=== PATIENT | female | born 1950 | race Caucasian/White ===

== ENCOUNTER → 2017-11-30 11:40 | Outpatient (CLI) | payer MEDICARE, OTHER, SELFPAY ==
--- NOTE | 2017-11-30 | DI.MG.S_ITS ---
UNILATERAL LEFT DIGITAL SCREENING MAMMOGRAM 3D/2D WITH CAD POST MASTECTOMY: 11/30/2017 CLINICAL: Routine screening. Personal history of right breast cancer. Family history of breast cancer. Comparison is made to exams dated: 11/21/2016 mammogram, 10/21/2011 mammogram - [facility], and 09/10/2010 mammogram - [facility]. There are scattered fibroglandular elements in the left breast. Current study was also evaluated with a Computer Aided Detection (CAD) system. There are mole markers on the left breast. No significant masses, calcifications, or other findings are seen in the breast. There has been no significant interval change. IMPRESSION: NEGATIVE There is no mammographic evidence of malignancy. A 1 year screening mammogram is recommended. This exam was interpreted at Station ID: [id number]. NOTE: For mammograms, a report in lay terms will be sent to the patient. Approximately 15% of breast malignancies will not be visualized mammographically. In the management of a palpable breast mass, a negative mammogram must not discourage biopsy of a clinically suspicious lesion. Electronically Signed By: Mariusz gentile/kandice:11/30/2017 19:59:21 letter sent: Normal Exam ACR BI-RADS Category 1: Negative 3341F
== END ==
PROVIDERS: Family Provider Family Medicine; PCP Family Medicine; Visit Provider Family Medicine
DX: Z12.31 Encounter for screening mammogram for malignant neoplasm of breast (principal); Z85.3 Personal history of malignant neoplasm of breast; Z80.3 Family history of malignant neoplasm of breast
CPT/HCPCS: 77063; 77065

== ENCOUNTER → 2018-06-04 12:26 | Outpatient (CLI) | payer MEDICARE, OTHER, SELFPAY ==
--- NOTE | 2018-06-04 | DI.RAD.S_ITS ---
PROCEDURE: XR CHEST 2V INDICATIONS: COUGH TECHNIQUE: 2 views of the chest were acquired. COMPARISON: [facility], CHEST 1 VIEW, 04/28/2015, 15:58. [facility], CHEST 1 VIEW, 04/28/2015, 16:14. [facility], CHEST 2 VIEW, 07/15/2015, 10:09. [facility], CHEST 2 VIEW, 08/08/2016, 13:09. FINDINGS: Surgical changes and devices: None. Lungs and pleura: Lungs are clear. No pleural effusions or pneumothorax. Mediastinum: Mediastinal contours are normal. Heart size is normal. Bones and chest wall: No suspicious bony abnormalities. Age-appropriate bony degenerative changes are seen. Mild dextroconvex scoliotic curvature is seen. Soft tissues appear unremarkable. IMPRESSION: No acute cardiopulmonary process is seen. If there is clinical concern for a developing pulmonary process, a short-term followup chest series (with PA and lateral views, performed in deep inspiration) is suggested for further evaluation. Dictated by: Narciso Rouse M.D. on 06/04/2018 at 12:09 Approved by: Narciso Rouse M.D. on 06/04/2018 at 12:09
== END ==
PROVIDERS: Visit Provider Internal Medicine
DX: R05 Cough (principal)
CPT/HCPCS: 71046

== ENCOUNTER 2018-06-10 15:20 | Emergency (ER) | payer MEDICARE, OTHER, SELFPAY ==
[2018-06-10 15:27] VITALS: BP 155/59; PULSE 117; RESP 20; TEMP 37.1; O2SAT 95
--- NOTE | 2018-06-10 15:31 | ED.URI ---
HPI - URI/Sore Throat <Nanda Vega PA-C - Last Filed: 06/10/18 21:37> General Chief Complaint: Upper Respiratory Symptoms Stated Complaint: cough, walk in said they cant help her Time Seen by Provider: 06/10/18 15:29 Source: patient Mode of arrival: ambulatory Limitations: no limitations History of Present Illness HPI Narrative: this 68-year-old female comes in with concern for COPD exacerbation. She states that since yesterday, she has had worsening cough and dyspnea, and even more so today. She has runny nose. She does not have fever. She intermittently brings some sputum which is atypical for her. She states this is thick and yellow/white. She has been exposed to a grandchild that has had runny nose and cold symptoms, age 10 months. She believes that was due to teething. She feels like this is similar to previous exacerbations where antibiotics have been helpful ( has had 2 more episodes in the last 4 months).. She denies chest pain. She denies new pain or swelling in the extremities (states she always has mild ankle swelling which is unchanged). she states that she has been getting up and sitting in a recliner last couple of nights due to the cough keeping her up. She is not short of breath lying down. Related Data Home Medications Medication Instructions Recorded Confirmed albuterol sulfate HFA 90 1 puff INHALATION Q6H PRN 04/25/18 04/25/18 mcg/actuation aerosol inhaler Previous Rx's Medication Instructions Recorded losartan 50 mg-hydrochlorothiazide 1 tab PO DAILY #30 tab 03/29/18 12.5 mg tablet losartan 50 mg-hydrochlorothiazide 1 tab PO DAILY #60 tab 04/25/18 12.5 mg tablet amoxicillin-pot clavulanate 1 tab PO Q12H #12 tab 06/10/18 prednisone 40 mg PO DAILY 3 Days #6 tab 06/10/18 Allergies Allergy/AdvReac Type Severity Reaction Status Date / Time povidone-iodine Allergy Unknown Verified 04/25/18 16:06 [From BETADINE] soap [From BETADINE] Allergy Unknown Verified 04/25/18 16:06 Review of Systems <Nanda Vega PA-C - Last Filed: 06/10/18 21:37> Review of Systems ROS Unobtainable: All systems reviewed & are unremarkable except as noted in HPI and below PFSH <LEXIS Landa Last Filed: 06/10/18 21:37> Medical History H/O: HTN (hypertension) (Chronic) History of COPD (Chronic) History of asthma (Chronic) Leukocytosis (Chronic) MS (multiple sclerosis) (Chronic) History of breast cancer (Resolved) Surgical History History of (Resolved) Status post cholecystectomy (Resolved) Status post hernia repair (Resolved) Status post hysterectomy (Resolved) Status post right mastectomy (Resolved) Social History Smoking Status: Former smoker Social History Smoking Status: Former smoker Comment: Forty-two pack-years tobacco, quit 2014 Exam <LEXIS Landa Last Filed: 06/10/18 21:37> Narrative Exam Narrative: GENERAL APPEARANCE: Patient sitting comfortably, in no distress. HEAD: No sinus TTP. EYES: PERRL, EOMI. ORAL CAVITY: Normal oropharynx. THROAT: Clear. NECK/THYROID: Neck supple, full range of motion, no cervical lymphadenopathy. LUNGS: Course, moderately congested breath sounds with a few scattered crackles, not audible after nebulizer treatment. No wheeze. Occasional wet cough. HEART: RRR without murmur, nl S1, S2, no S3 or S4. ABDOMEN: Soft, nontender, nondistended, +bowel sounds x4 quadrants EXTREMITIES: Mild edema to the ankles bilaterally, no calf tenderness. Small varicosities noted bilaterally Initial Vital Signs Initial Vital Signs: Vital Signs Temperature 98.8 F 06/10/18 15:27 Pulse Rate 117 H 06/10/18 15:27 Respiratory Rate 20 06/10/18 15:27 Blood Pressure 155/59 H 06/10/18 15:27 Pulse Oximetry 95 06/10/18 15:27 <Rona Abad DO - Last Filed: 06/11/18 07:26> Initial Vital Signs Initial Vital Signs: Vital Signs Temperature 98.8 F 06/10/18 15:27 Pulse Rate 117 H 06/10/18 15:27 Respiratory Rate 20 06/10/18 15:27 Blood Pressure 155/59 H 06/10/18 15:27 Pulse Oximetry 95 06/10/18 15:27 Course <LEXIS Landa Last Filed: 06/10/18 21:37> Additional Information: patient feels a bit better after nebulizer treatments. She states that she always has elevated white counts and does not wish further testing for this. She feels like these are the exact symptoms that she has had in the last few months which always improve with antibiotics. She does have increased purulent sputum production and a culture will be sent. She does not have a spacer for inhalers and teaching was done for this with respiratory therapy. She has taken prednisone in the past with no problems for her MS and will start on this for a few days as well as Augmentin, and will follow up with her PCP in a few days. She promised to return to ED immediately if acutely worsening symptoms Orders Ordered: Discontinued Medications Albuterol (Ventolin) 2.5 mg INH NOW ONE Stop: 06/10/18 15:30 Last Admin: 06/10/18 15:50 Dose: 2.5 mg Albuterol/Ipratropium (Duoneb) 3 ml INH NOW ONE Stop: 06/10/18 15:49 Last Admin: 06/10/18 15:50 Dose: 3 ml Amoxicillin/Clavulanate Potassium (Augmentin 875-125 Mg) 2 tab PO NOW ONE Stop: 06/10/18 17:15 Last Admin: 06/10/18 17:31 Dose: 2 tab Ipratropium Bastian (Atrovent Neb) 0.5 mg INH NOW ONE Stop: 06/10/18 15:30 Last Admin: 06/10/18 16:21 Dose: Not Given Prednisone (Deltasone) 40 mg PO NOW ONE Stop: 06/10/18 17:15 Last Admin: 06/10/18 17:32 Dose: 40 mg Vital Signs - 8 hr 06/10/18 15:27 06/10/18 15:51 06/10/18 16:00 Temperature 98.8 F Pulse Rate 117 H 99 H 106 H Respiratory Rate 20 18 21 Blood Pressure 155/59 H Blood Pressure [Left Arm] 145/58 H Pulse Oximetry 95 97 96 06/10/18 17:00 06/10/18 17:33 Temperature Pulse Rate 108 H 105 H Respiratory Rate 30 H 19 Blood Pressure 131/54 L Blood Pressure [Left Arm] 131/54 L Pulse Oximetry 96 98 <Rona Abad DO - Last Filed: 06/11/18 07:26> Orders Ordered: Discontinued Medications Albuterol (Ventolin) 2.5 mg INH NOW ONE Stop: 06/10/18 15:30 Last Admin: 06/10/18 15:50 Dose: 2.5 mg Albuterol/Ipratropium (Duoneb) 3 ml INH NOW ONE Stop: 06/10/18 15:49 Last Admin: 06/10/18 15:50 Dose: 3 ml Amoxicillin/Clavulanate Potassium (Augmentin 875-125 Mg) 2 tab PO NOW ONE Stop: 06/10/18 17:15 Last Admin: 06/10/18 17:31 Dose: 2 tab Ipratropium Bastian (Atrovent Neb) 0.5 mg INH NOW ONE Stop: 06/10/18 15:30 Last Admin: 06/10/18 16:21 Dose: Not Given Prednisone (Deltasone) 40 mg PO NOW ONE Stop: 06/10/18 17:15 Last Admin: 06/10/18 17:32 Dose: 40 mg Vital Signs - 8 hr 06/10/18 15:27 06/10/18 15:51 06/10/18 16:00 Temperature 98.8 F Pulse Rate 117 H 99 H 106 H Respiratory Rate 20 18 21 Blood Pressure 155/59 H Blood Pressure [Left Arm] 145/58 H Pulse Oximetry 95 97 96 06/10/18 17:00 06/10/18 17:33 Temperature Pulse Rate 108 H 105 H Respiratory Rate 30 H 19 Blood Pressure 131/54 L Blood Pressure [Left Arm] 131/54 L Pulse Oximetry 96 98 MDM - URI/Sore Throat <Nanda Vega PA-C - Last Filed: 06/10/18 21:37> Lab Data Attestation: I reviewed the patient's lab results. Result diagrams: 06/10/18 16:10 06/10/18 16:10 Lab Results 06/10/18 06/10/18 06/10/18 Range/Units 15:35 15:58 16:10 WBC 21.0 H (4.5-11.0) X10^3/uL RBC 4.60 (4.0-5.2) X10^6/uL Hgb 12.2 (12.0-16.0) g/dL Hct 37.8 (36-46) % MCV 82.0 (80-100) fL MCH 26.6 (26-34) PG MCHC 32.4 (30-36) % RDW 14.1 (11.6-14.8) % Plt Count 285 (150-400) X10^3/uL Neut % (Auto) 69.6 (50-75) % Lymph % (Auto) 20.3 L (25-40) % [place] % (Auto) 8.7 (3-14) % Eos % (Auto) 0.2 L (2-4) % Baso % (Auto) 1.2 (0-2) % Neut # (Auto) 00359 H (5949-7512) /uL Lymph # (Auto) 4300 (7625-1196) /uL [place] # (Auto) 1800 H (0-900) /uL Eos # (Auto) 0 (0-450) /uL Baso # (Auto) 200 H (0-100) /uL Sodium (137-145) mmol/L Potassium (3.4-5.1) mmol/L Chloride (98-107) mmol/L Carbon Dioxide (22-32) mmol/L BUN (7-17) mg/dL Creatinine (0.52-1.04) mg/dL Estimated GFR (>60) mL/min BUN/Creatinine Ratio (6-22) Glucose (80-110) mg/dL Calcium (8.4-10.2) mg/dL Total Bilirubin (0.2-1.3) mg/dL AST (14-36) IU/L ALT (9-52) IU/L Alkaline Phosphatase (38-126) U/L B-Natriuretic Peptide < 100 (<100) Total Protein (6.3-8.2) g/dL Albumin (3.5-5.0) g/dL Globulin (1.7-4.1) g/dL Albumin/Globulin Ratio (1.0-2.8) Influenza A & B (PCR) Negative (Negative) RSV (PCR) Negative 06/10/18 Range/Units 16:10 WBC (4.5-11.0) X10^3/uL RBC (4.0-5.2) X10^6/uL Hgb (12.0-16.0) g/dL Hct (36-46) % MCV (80-100) fL MCH (26-34) PG MCHC (30-36) % RDW (11.6-14.8) % Plt Count (150-400) X10^3/uL Neut % (Auto) (50-75) % Lymph % (Auto) (25-40) % [place] % (Auto) (3-14) % Eos % (Auto) (2-4) % Baso % (Auto) (0-2) % Neut # (Auto) (8240-4733) /uL Lymph # (Auto) (6028-5160) /uL [place] # (Auto) (0-900) /uL Eos # (Auto) (0-450) /uL Baso # (Auto) (0-100) /uL Sodium 139 (137-145) mmol/L Potassium 3.8 (3.4-5.1) mmol/L Chloride 98 (98-107) mmol/L Carbon Dioxide 30 (22-32) mmol/L BUN 15 (7-17) mg/dL Creatinine 1.00 (0.52-1.04) mg/dL Estimated GFR 55.0 L (>60) mL/min BUN/Creatinine Ratio 15.0 (6-22) Glucose 152 H (80-110) mg/dL Calcium 9.6 (8.4-10.2) mg/dL Total Bilirubin 0.5 (0.2-1.3) mg/dL AST 20 (14-36) IU/L ALT 24 (9-52) IU/L Alkaline Phosphatase 104 (38-126) U/L B-Natriuretic Peptide (<100) Total Protein 8.0 (6.3-8.2) g/dL Albumin 4.3 (3.5-5.0) g/dL Globulin 3.7 (1.7-4.1) g/dL Albumin/Globulin Ratio 1.2 (1.0-2.8) Influenza A & B (PCR) (Negative) RSV (PCR) Imaging Data Chest x-ray: Radiologist's impression: [address] [address] XRay Report Signed Patient: Kym Brunner [facility]#: [id number] : 1950Acct:[id number] Age/Sex: 68 / FDate of Service: 06/10/18 Loc: ED Accession Number: [id number] Procedure: XR chest 2V Ordering Provider: Nanda Vega P.A-C PROCEDURE: XR CHEST 2V INDICATIONS: cough, sob TECHNIQUE: 2 views of the chest were acquired. COMPARISON: [facility], , XR CHEST 2V, 06/04/2018, 12:33. [facility], CR, CHEST 2 VIEW, 08/08/2016, 13:09. FINDINGS: Surgical changes and devices: None. Lungs and pleura: No acute consolidation. Scattered subsegmental atelectasis and/or scarring. No pleural effusions or pneumothorax. Eventration of the right diaphragm. Upper lobe centrilobular emphysema, left greater than right Mediastinum: Mediastinal contours are normal. Heart size is normal. Bones and chest wall: No suspicious bony abnormalities. Lateral curvature of the spine and diffuse spondylosis. Soft tissues appear unremarkable. IMPRESSION: No acute consolidation. Scattered subsegmental atelectasis and/or scarring. No interval change. Dictated by: Jose Luis Germain M.D. on 06/10/2018 at 16:23 Approved by: Jose Luis Germain M.D. on 06/10/2018 at 16:24 ECG Data Attestation: I personally reviewed and interpreted this ECG as follows: ( sinus tachycardia with rate 102, normal axis, no acute change) Prior ECG tracings: available for review <Rona Abad DO - Last Filed: 06/11/18 07:26> Lab Data Lab Results 06/10/18 06/10/18 06/10/18 Range/Units 15:35 15:58 16:10 WBC 21.0 H (4.5-11.0) X10^3/uL RBC 4.60 (4.0-5.2) X10^6/uL Hgb 12.2 (12.0-16.0) g/dL Hct 37.8 (36-46) % MCV 82.0 (80-100) fL MCH 26.6 (26-34) PG MCHC 32.4 (30-36) % RDW 14.1 (11.6-14.8) % Plt Count 285 (150-400) X10^3/uL Neut % (Auto) 69.6 (50-75) % Lymph % (Auto) 20.3 L (25-40) % [place] % (Auto) 8.7 (3-14) % Eos % (Auto) 0.2 L (2-4) % Baso % (Auto) 1.2 (0-2) % Neut # (Auto) 14082 H (5072-3721) /uL Lymph # (Auto) 4300 (6226-9523) /uL [place] # (Auto) 1800 H (0-900) /uL Eos # (Auto) 0 (0-450) /uL Baso # (Auto) 200 H (0-100) /uL Sodium (137-145) mmol/L Potassium (3.4-5.1) mmol/L Chloride (98-107) mmol/L Carbon Dioxide (22-32) mmol/L BUN (7-17) mg/dL Creatinine (0.52-1.04) mg/dL Estimated GFR (>60) mL/min BUN/Creatinine Ratio (6-22) Glucose (80-110) mg/dL Calcium (8.4-10.2) mg/dL Total Bilirubin (0.2-1.3) mg/dL AST (14-36) IU/L ALT (9-52) IU/L Alkaline Phosphatase (38-126) U/L B-Natriuretic Peptide < 100 (<100) Total Protein (6.3-8.2) g/dL Albumin (3.5-5.0) g/dL Globulin (1.7-4.1) g/dL Albumin/Globulin Ratio (1.0-2.8) Influenza A & B (PCR) Negative (Negative) RSV (PCR) Negative 06/10/18 Range/Units 16:10 WBC (4.5-11.0) X10^3/uL RBC (4.0-5.2) X10^6/uL Hgb (12.0-16.0) g/dL Hct (36-46) % MCV (80-100) fL MCH (26-34) PG MCHC (30-36) % RDW (11.6-14.8) % Plt Count (150-400) X10^3/uL Neut % (Auto) (50-75) % Lymph % (Auto) (25-40) % [place] % (Auto) (3-14) % Eos % (Auto) (2-4) % Baso % (Auto) (0-2) % Neut # (Auto) (1586-1975) /uL Lymph # (Auto) (1345-2087) /uL [place] # (Auto) (0-900) /uL Eos # (Auto) (0-450) /uL Baso # (Auto) (0-100) /uL Sodium 139 (137-145) mmol/L Potassium 3.8 (3.4-5.1) mmol/L Chloride 98 (98-107) mmol/L Carbon Dioxide 30 (22-32) mmol/L BUN 15 (7-17) mg/dL Creatinine 1.00 (0.52-1.04) mg/dL Estimated GFR 55.0 L (>60) mL/min BUN/Creatinine Ratio 15.0 (6-22) Glucose 152 H (80-110) mg/dL Calcium 9.6 (8.4-10.2) mg/dL Total Bilirubin 0.5 (0.2-1.3) mg/dL AST 20 (14-36) IU/L ALT 24 (9-52) IU/L Alkaline Phosphatase 104 (38-126) U/L B-Natriuretic Peptide (<100) Total Protein 8.0 (6.3-8.2) g/dL Albumin 4.3 (3.5-5.0) g/dL Globulin 3.7 (1.7-4.1) g/dL Albumin/Globulin Ratio 1.2 (1.0-2.8) Influenza A & B (PCR) (Negative) RSV (PCR) Discharge Plan Departure Patient Disposition: Home Clinical Impression: Chronic obstructive pulmonary disease with (acute) exacerbation Discharge Date/Time: 06/10/18 17:34 Interventions: ED Discharge Assessment Last Done: 06/10/18 17:33 Instructions: DI for Chronic Obstructive Pulmonary Disease Activity Restrictions/Additional Instructions: please return if you have any acutely worsening symptoms as we discussed. Otherwise, please take your 2nd dose of antibiotic early in the morning. 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 continue your steroid inhaler and your other usual medicines. For your albuterol (ProAir) you can take this as often as needed, up to every hour or 2 if your chest is feeling tight or UR short of breath, or for coughing spells. Use your inhalers with the spacer that we gave you. Prescriptions: New prednisone 20 mg tablet 40 mg PO DAILY 3 Days Qty: 6 RF: 0 amoxicillin-pot clavulanate 875-125 mg tablet 1 tab PO Q12H Qty: 12 RF: 0 No Action albuterol sulfate [ProAir HFA] 90 mcg/actuation HFA aerosol inhaler 1 puff INHALATION Q6H PRNRF: 0 losartan-hydrochlorothiazide 50-12.5 mg tablet 1 tab PO DAILY Qty: 60 RF: 0 losartan-hydrochlorothiazide 50-12.5 mg tablet 1 tab PO DAILY Qty: 30 RF: 0 Referrals: Khai Steele MD [Physician] - <Rona Abad DO - Last Filed: 06/11/18 07:26> Cosign ED Attending Cosignature Attestation: I was immediately available in the department for consultation. This documentation has been reviewed and I agree with assessment and plan. Supervised by Rona Abad DO
--- NOTE | 2018-06-10 15:46 | ED_ITS ---
HPI - URI/Sore Throat <Nanda Vega PA-C - Last Filed: 06/10/18 21:37> General Chief Complaint: Upper Respiratory Symptoms Stated Complaint: cough, walk in said they cant help her Time Seen by Provider: 06/10/18 15:29 Source: patient Mode of arrival: ambulatory Limitations: no limitations History of Present Illness HPI Narrative: this 68-year-old female comes in with concern for COPD exacerbation. She states that since yesterday, she has had worsening cough and dyspnea, and even more so today. She has runny nose. She does not have fever. She intermittently brings some sputum which is atypical for her. She states this is thick and yellow/white. She has been exposed to a grandchild that has had runny nose and cold symptoms, age 10 months. She believes that was due to teething. She feels like this is similar to previous exacerbations where antibiotics have been helpful ( has had 2 more episodes in the last 4 months).. She denies chest pain. She denies new pain or swelling in the extremities (states she always has mild ankle swelling which is unchanged). she states that she has been getting up and sitting in a recliner last couple of nights due to the cough keeping her up. She is not short of breath lying down. Related Data Home Medications Medication Instructions Recorded Confirmed albuterol sulfate HFA 90 1 puff INHALATION Q6H PRN 04/25/18 04/25/18 mcg/actuation aerosol inhaler Previous Rx's Medication Instructions Recorded losartan 50 mg-hydrochlorothiazide 1 tab PO DAILY #30 tab 03/29/18 12.5 mg tablet losartan 50 mg-hydrochlorothiazide 1 tab PO DAILY #60 tab 04/25/18 12.5 mg tablet amoxicillin-pot clavulanate 1 tab PO Q12H #12 tab 06/10/18 prednisone 40 mg PO DAILY 3 Days #6 tab 06/10/18 Allergies Allergy/AdvReac Type Severity Reaction Status Date / Time povidone-iodine Allergy Unknown Verified 04/25/18 16:06 [From BETADINE] soap [From BETADINE] Allergy Unknown Verified 04/25/18 16:06 Review of Systems <Nanda Vega PA-C - Last Filed: 06/10/18 21:37> Review of Systems ROS Unobtainable: All systems reviewed & are unremarkable except as noted in HPI and below PFSH <LEXIS Landa Last Filed: 06/10/18 21:37> Medical History H/O: HTN (hypertension) (Chronic) History of COPD (Chronic) History of asthma (Chronic) Leukocytosis (Chronic) MS (multiple sclerosis) (Chronic) History of breast cancer (Resolved) Surgical History History of (Resolved) Status post cholecystectomy (Resolved) Status post hernia repair (Resolved) Status post hysterectomy (Resolved) Status post right mastectomy (Resolved) Social History Smoking Status: Former smoker Social History Smoking Status: Former smoker Comment: Forty-two pack-years tobacco, quit 2014 Exam <LEXIS Landa Last Filed: 06/10/18 21:37> Narrative Exam Narrative: GENERAL APPEARANCE: Patient sitting comfortably, in no distress. HEAD: No sinus TTP. EYES: PERRL, EOMI. ORAL CAVITY: Normal oropharynx. THROAT: Clear. NECK/THYROID: Neck supple, full range of motion, no cervical lymphadenopathy. LUNGS: Course, moderately congested breath sounds with a few scattered crackles, not audible after nebulizer treatment. No wheeze. Occasional wet cough. HEART: RRR without murmur, nl S1, S2, no S3 or S4. ABDOMEN: Soft, nontender, nondistended, +bowel sounds x4 quadrants EXTREMITIES: Mild edema to the ankles bilaterally, no calf tenderness. Small varicosities noted bilaterally Initial Vital Signs Initial Vital Signs: Vital Signs Temperature 98.8 F 06/10/18 15:27 Pulse Rate 117 H 06/10/18 15:27 Respiratory Rate 20 06/10/18 15:27 Blood Pressure 155/59 H 06/10/18 15:27 Pulse Oximetry 95 06/10/18 15:27 <Rona Abad DO - Last Filed: 06/11/18 07:26> Initial Vital Signs Initial Vital Signs: Vital Signs Temperature 98.8 F 06/10/18 15:27 Pulse Rate 117 H 06/10/18 15:27 Respiratory Rate 20 06/10/18 15:27 Blood Pressure 155/59 H 06/10/18 15:27 Pulse Oximetry 95 06/10/18 15:27 Course <LEXIS Landa Last Filed: 06/10/18 21:37> Additional Information: patient feels a bit better after nebulizer treatments. She states that she always has elevated white counts and does not wish further testing for this. She feels like these are the exact symptoms that she has had in the last few months which always improve with antibiotics. She does have increased purulent sputum production and a culture will be sent. She does not have a spacer for inhalers and teaching was done for this with respiratory therapy. She has taken prednisone in the past with no problems for her MS and will start on this for a few days as well as Augmentin, and will follow up with her PCP in a few days. She promised to return to ED immediately if acutely worsening symptoms Orders Ordered: Discontinued Medications Albuterol (Ventolin) 2.5 mg INH NOW ONE Stop: 06/10/18 15:30 Last Admin: 06/10/18 15:50 Dose: 2.5 mg Albuterol/Ipratropium (Duoneb) 3 ml INH NOW ONE Stop: 06/10/18 15:49 Last Admin: 06/10/18 15:50 Dose: 3 ml Amoxicillin/Clavulanate Potassium (Augmentin 875-125 Mg) 2 tab PO NOW ONE Stop: 06/10/18 17:15 Last Admin: 06/10/18 17:31 Dose: 2 tab Ipratropium [place] (Atrovent Neb) 0.5 mg INH NOW ONE Stop: 06/10/18 15:30 Last Admin: 06/10/18 16:21 Dose: Not Given Prednisone (Deltasone) 40 mg PO NOW ONE Stop: 06/10/18 17:15 Last Admin: 06/10/18 17:32 Dose: 40 mg Vital Signs - 8 hr 06/10/18 15:27 06/10/18 15:51 06/10/18 16:00 Temperature 98.8 F Pulse Rate 117 H 99 H 106 H Respiratory Rate 20 18 21 Blood Pressure 155/59 H Blood Pressure [Left Arm] 145/58 H Pulse Oximetry 95 97 96 06/10/18 17:00 06/10/18 17:33 Temperature Pulse Rate 108 H 105 H Respiratory Rate 30 H 19 Blood Pressure 131/54 L Blood Pressure [Left Arm] 131/54 L Pulse Oximetry 96 98 <Rona Abad DO - Last Filed: 06/11/18 07:26> Orders Ordered: Discontinued Medications Albuterol (Ventolin) 2.5 mg INH NOW ONE Stop: 06/10/18 15:30 Last Admin: 06/10/18 15:50 Dose: 2.5 mg Albuterol/Ipratropium (Duoneb) 3 ml INH NOW ONE Stop: 06/10/18 15:49 Last Admin: 06/10/18 15:50 Dose: 3 ml Amoxicillin/Clavulanate Potassium (Augmentin 875-125 Mg) 2 tab PO NOW ONE Stop: 06/10/18 17:15 Last Admin: 06/10/18 17:31 Dose: 2 tab Ipratropium [place] (Atrovent Neb) 0.5 mg INH NOW ONE Stop: 06/10/18 15:30 Last Admin: 06/10/18 16:21 Dose: Not Given Prednisone (Deltasone) 40 mg PO NOW ONE Stop: 06/10/18 17:15 Last Admin: 06/10/18 17:32 Dose: 40 mg Vital Signs - 8 hr 06/10/18 15:27 06/10/18 15:51 06/10/18 16:00 Temperature 98.8 F Pulse Rate 117 H 99 H 106 H Respiratory Rate 20 18 21 Blood Pressure 155/59 H Blood Pressure [Left Arm] 145/58 H Pulse Oximetry 95 97 96 06/10/18 17:00 06/10/18 17:33 Temperature Pulse Rate 108 H 105 H Respiratory Rate 30 H 19 Blood Pressure 131/54 L Blood Pressure [Left Arm] 131/54 L Pulse Oximetry 96 98 MDM - URI/Sore Throat <Nanda Vega PA-C - Last Filed: 06/10/18 21:37> Lab Data Attestation: I reviewed the patient's lab results. Result diagrams: 06/10/18 16:10 06/10/18 16:10 Lab Results 06/10/18 06/10/18 06/10/18 Range/Units 15:35 15:58 16:10 WBC 21.0 H (4.5-11.0) X10^3/uL RBC 4.60 (4.0-5.2) X10^6/uL Hgb 12.2 (12.0-16.0) g/dL Hct 37.8 (36-46) % MCV 82.0 (80-100) fL MCH 26.6 (26-34) PG MCHC 32.4 (30-36) % RDW 14.1 (11.6-14.8) % Plt Count 285 (150-400) X10^3/uL Neut % (Auto) 69.6 (50-75) % Lymph % (Auto) 20.3 L (25-40) % [place] % (Auto) 8.7 (3-14) % Eos % (Auto) 0.2 L (2-4) % Baso % (Auto) 1.2 (0-2) % Neut # (Auto) 18092 H (9981-6416) /uL Lymph # (Auto) 4300 (4783-5787) /uL [place] # (Auto) 1800 H (0-900) /uL Eos # (Auto) 0 (0-450) /uL Baso # (Auto) 200 H (0-100) /uL Sodium (137-145) mmol/L Potassium (3.4-5.1) mmol/L Chloride (98-107) mmol/L Carbon Dioxide (22-32) mmol/L BUN (7-17) mg/dL Creatinine (0.52-1.04) mg/dL Estimated GFR (>60) mL/min BUN/Creatinine Ratio (6-22) Glucose (80-110) mg/dL Calcium (8.4-10.2) mg/dL Total Bilirubin (0.2-1.3) mg/dL AST (14-36) IU/L ALT (9-52) IU/L Alkaline Phosphatase (38-126) U/L B-Natriuretic Peptide < 100 (<100) Total Protein (6.3-8.2) g/dL Albumin (3.5-5.0) g/dL Globulin (1.7-4.1) g/dL Albumin/Globulin Ratio (1.0-2.8) Influenza A & B (PCR) Negative (Negative) RSV (PCR) Negative 06/10/18 Range/Units 16:10 WBC (4.5-11.0) X10^3/uL RBC (4.0-5.2) X10^6/uL Hgb (12.0-16.0) g/dL Hct (36-46) % MCV (80-100) fL MCH (26-34) PG MCHC (30-36) % RDW (11.6-14.8) % Plt Count (150-400) X10^3/uL Neut % (Auto) (50-75) % Lymph % (Auto) (25-40) % [place] % (Auto) (3-14) % Eos % (Auto) (2-4) % Baso % (Auto) (0-2) % Neut # (Auto) (2160-5500) /uL Lymph # (Auto) (3731-2759) /uL [place] # (Auto) (0-900) /uL Eos # (Auto) (0-450) /uL Baso # (Auto) (0-100) /uL Sodium 139 (137-145) mmol/L Potassium 3.8 (3.4-5.1) mmol/L Chloride 98 (98-107) mmol/L Carbon Dioxide 30 (22-32) mmol/L BUN 15 (7-17) mg/dL Creatinine 1.00 (0.52-1.04) mg/dL Estimated GFR 55.0 L (>60) mL/min BUN/Creatinine Ratio 15.0 (6-22) Glucose 152 H (80-110) mg/dL Calcium 9.6 (8.4-10.2) mg/dL Total Bilirubin 0.5 (0.2-1.3) mg/dL AST 20 (14-36) IU/L ALT 24 (9-52) IU/L Alkaline Phosphatase 104 (38-126) U/L B-Natriuretic Peptide (<100) Total Protein 8.0 (6.3-8.2) g/dL Albumin 4.3 (3.5-5.0) g/dL Globulin 3.7 (1.7-4.1) g/dL Albumin/Globulin Ratio 1.2 (1.0-2.8) Influenza A & B (PCR) (Negative) RSV (PCR) Imaging Data Chest x-ray: Radiologist's impression: [address] [address] XRay Report Signed Patient: Kym Brunner [facility]#: [id number] : 1950Acct:[id number] Age/Sex: 68 / FDate of Service: 06/10/18 Loc: ED Accession Number: [id number] Procedure: XR chest 2V Ordering Provider: Nanda Vega P.A-C PROCEDURE: XR CHEST 2V INDICATIONS: cough, sob TECHNIQUE: 2 views of the chest were acquired. COMPARISON: [facility], , XR CHEST 2V, 06/04/2018, 12:33. [facility], CR, CHEST 2 VIEW, 08/08/2016, 13:09. FINDINGS: Surgical changes and devices: None. Lungs and pleura: No acute consolidation. Scattered subsegmental atelectasis and/or scarring. No pleural effusions or pneumothorax. Eventration of the right diaphragm. Upper lobe centrilobular emphysema, left greater than right Mediastinum: Mediastinal contours are normal. Heart size is normal. Bones and chest wall: No suspicious bony abnormalities. Lateral curvature of the spine and diffuse spondylosis. Soft tissues appear unremarkable. IMPRESSION: No acute consolidation. Scattered subsegmental atelectasis and/or scarring. No interval change. Dictated by: Jose Luis Germain M.D. on 06/10/2018 at 16:23 Approved by: Jose Luis Germain M.D. on 06/10/2018 at 16:24 ECG Data Attestation: I personally reviewed and interpreted this ECG as follows: ( sinus tachycardia with rate 102, normal axis, no acute change) Prior ECG tracings: available for review <Rona Abad DO - Last Filed: 06/11/18 07:26> Lab Data Lab Results 06/10/18 06/10/18 06/10/18 Range/Units 15:35 15:58 16:10 WBC 21.0 H (4.5-11.0) X10^3/uL RBC 4.60 (4.0-5.2) X10^6/uL Hgb 12.2 (12.0-16.0) g/dL Hct 37.8 (36-46) % MCV 82.0 (80-100) fL MCH 26.6 (26-34) PG MCHC 32.4 (30-36) % RDW 14.1 (11.6-14.8) % Plt Count 285 (150-400) X10^3/uL Neut % (Auto) 69.6 (50-75) % Lymph % (Auto) 20.3 L (25-40) % [place] % (Auto) 8.7 (3-14) % Eos % (Auto) 0.2 L (2-4) % Baso % (Auto) 1.2 (0-2) % Neut # (Auto) 52718 H (1762-9177) /uL Lymph # (Auto) 4300 (9173-3122) /uL [place] # (Auto) 1800 H (0-900) /uL Eos # (Auto) 0 (0-450) /uL Baso # (Auto) 200 H (0-100) /uL Sodium (137-145) mmol/L Potassium (3.4-5.1) mmol/L Chloride (98-107) mmol/L Carbon Dioxide (22-32) mmol/L BUN (7-17) mg/dL Creatinine (0.52-1.04) mg/dL Estimated GFR (>60) mL/min BUN/Creatinine Ratio (6-22) Glucose (80-110) mg/dL Calcium (8.4-10.2) mg/dL Total Bilirubin (0.2-1.3) mg/dL AST (14-36) IU/L ALT (9-52) IU/L Alkaline Phosphatase (38-126) U/L B-Natriuretic Peptide < 100 (<100) Total Protein (6.3-8.2) g/dL Albumin (3.5-5.0) g/dL Globulin (1.7-4.1) g/dL Albumin/Globulin Ratio (1.0-2.8) Influenza A & B (PCR) Negative (Negative) RSV (PCR) Negative 06/10/18 Range/Units 16:10 WBC (4.5-11.0) X10^3/uL RBC (4.0-5.2) X10^6/uL Hgb (12.0-16.0) g/dL Hct (36-46) % MCV (80-100) fL MCH (26-34) PG MCHC (30-36) % RDW (11.6-14.8) % Plt Count (150-400) X10^3/uL Neut % (Auto) (50-75) % Lymph % (Auto) (25-40) % [place] % (Auto) (3-14) % Eos % (Auto) (2-4) % Baso % (Auto) (0-2) % Neut # (Auto) (6944-9345) /uL Lymph # (Auto) (3817-2917) /uL [place] # (Auto) (0-900) /uL Eos # (Auto) (0-450) /uL Baso # (Auto) (0-100) /uL Sodium 139 (137-145) mmol/L Potassium 3.8 (3.4-5.1) mmol/L Chloride 98 (98-107) mmol/L Carbon Dioxide 30 (22-32) mmol/L BUN 15 (7-17) mg/dL Creatinine 1.00 (0.52-1.04) mg/dL Estimated GFR 55.0 L (>60) mL/min BUN/Creatinine Ratio 15.0 (6-22) Glucose 152 H (80-110) mg/dL Calcium 9.6 (8.4-10.2) mg/dL Total Bilirubin 0.5 (0.2-1.3) mg/dL AST 20 (14-36) IU/L ALT 24 (9-52) IU/L Alkaline Phosphatase 104 (38-126) U/L B-Natriuretic Peptide (<100) Total Protein 8.0 (6.3-8.2) g/dL Albumin 4.3 (3.5-5.0) g/dL Globulin 3.7 (1.7-4.1) g/dL Albumin/Globulin Ratio 1.2 (1.0-2.8) Influenza A & B (PCR) (Negative) RSV (PCR) Discharge Plan Departure Patient Disposition: Home Clinical Impression: Chronic obstructive pulmonary disease with (acute) exacerbation Discharge Date/Time: 06/10/18 17:34 Interventions: ED Discharge Assessment Last Done: 06/10/18 17:33 Instructions: DI for Chronic Obstructive Pulmonary Disease Activity Restrictions/Additional Instructions: please return if you have any acutely worsening symptoms as we discussed. Otherwise, please take your 2nd dose of antibiotic early in the morning. supervisor erection shop the rest of the antibiotic and also prednisone from your pharmacy tomorrow, I have sent an electronic prescription. continue your steroid inhaler and your other usual medicines. For your albuterol (ProAir) you can take this as often as needed, up to every hour or 2 if your chest is feeling tight or UR short of breath, or for coughing spells. Use your inhalers with the spacer that we gave you. Prescriptions: New prednisone 20 mg tablet 40 mg PO DAILY 3 Days Qty: 6 RF: 0 amoxicillin-pot clavulanate 875-125 mg tablet 1 tab PO Q12H Qty: 12 RF: 0 No Action albuterol sulfate [ProAir HFA] 90 mcg/actuation HFA aerosol inhaler 1 puff INHALATION Q6H PRNRF: 0 losartan-hydrochlorothiazide 50-12.5 mg tablet 1 tab PO DAILY Qty: 60 RF: 0 losartan-hydrochlorothiazide 50-12.5 mg tablet 1 tab PO DAILY Qty: 30 RF: 0 Referrals: Khai Steele MD [Physician] - <Rona Abad DO - Last Filed: 06/11/18 07:26> Cosign ED Attending Cosignature Attestation: I was immediately available in the department for consultation. This documentation has been reviewed and I agree with assessment and plan. Supervised by Rona Abad DO
[2018-06-10] MEDS: ALBUTEROL/IPRATROPIUM 3 ML AMPUL INH (15:50)
[2018-06-10] MEDS: ALBUTEROL 2.5 MG/3 ML NEB (ADULT) INH (15:50)
[2018-06-10 15:51] VITALS: PULSE 99; RESP 18; O2SAT 97
[2018-06-10 16:00] VITALS: BP 145/58; PULSE 106; RESP 21; O2SAT 96
[2018-06-10 16:22] LABS: Influenza A and B by PCR Rapid Negative (Negative)
[2018-06-10 16:26] LABS: Add Manual Diff / Slide Review NO; Basophils Absolute Auto 200 /uL (0-100); Basophils Percent Auto 1.2 % (0-2); Eosinophils Absolute Auto 0 /uL (0-450); Eosinophils Percent Auto 0.2 % (2-4); Hematocrit 37.8 % (36-46); Hemoglobin 12.2 g/dL (12.0-16.0); Lymphocytes Absolute Auto 4300 /uL (1100-4500); Lymphocytes Percent Auto 20.3 % (25-40); Mean Corpuscular HGB Conc 32.4 % (30-36); Mean Corpuscular Hemoglobin 26.6 PG (26-34); Monocytes Absolute Auto 1800 /uL (0-900); Monocytes Percent Auto 8.7 % (3-14); Neutrophils Absolute Auto 14700 /uL (1500-7000); Neutrophils Percent Auto 69.6 % (50-75); Platelet Count 285 X10^3/uL (150-400); Red Cell Distribution Width 14.1 % (11.6-14.8)
[2018-06-10 16:33] LABS: Alanine Aminotransferase 24 IU/L (9-52); Albumin 4.3 g/dL (3.5-5.0); Albumin Globulin Ratio 1.2 (1.0-2.8); Alkaline Phosphatase 104 U/L (38-126); Aspartate Aminotransferase 20 IU/L (14-36); Bilirubin Total 0.5 mg/dL (0.2-1.3); Blood Urea Nitrogen 15 mg/dL (7-17); Calcium 9.6 mg/dL (8.4-10.2); Carbon Dioxide 30 mmol/L (22-32); Chloride 98 mmol/L (98-107); Globulin 3.7 g/dL (1.7-4.1); Glucose 152 mg/dL (80-110); HEMOLYSIS < 15 (0-50); Potassium 3.8 mmol/L (3.4-5.1); Sodium 139 mmol/L (137-145)
[2018-06-10 16:35] LABS: Respiratory Syncytial Virus Negative
[2018-06-10 16:51] LABS: B Type Natriuretic Peptide < 100 (<100)
[2018-06-10 17:00] VITALS: BP 131/54; PULSE 108; RESP 30; O2SAT 96
[2018-06-10] MEDS: AMOXICILLIN/CLAV 875/125 MG 2 TAB PO (17:31)
[2018-06-10] MEDS: predniSONE 20 MG TABLET 40 MG PO (17:32)
[2018-06-10 17:33] VITALS: BP 131/54; PULSE 105; RESP 19; O2SAT 98
== END 2018-06-10 17:34 | disposition home or self-care (01) ==
PROVIDERS: Emergency Provider Internal Medicine; Family Provider Family Medicine; PCP Family Medicine
DX: J44.1 Chronic obstructive pulmonary disease with (acute) exacerbation (principal)
CPT/HCPCS: 36415; 36591; 71046; 80053; 83880; 85025; 87400; 87634; 93005; 94640; 99283; 99285; J7613

== ENCOUNTER → 2018-06-28 13:21 | Outpatient (CLI) | payer MEDICARE, OTHER, SELFPAY | PROVIDERS: PCP Internal Medicine; Visit Provider Internal Medicine | DX: M85.851 Other specified disorders of bone density and structure, right thigh (principal); Z78.0 Asymptomatic menopausal state; Z85.3 Personal history of malignant neoplasm of breast; Z87.891 Personal history of nicotine dependence | CPT/HCPCS: 77080 ==

== ENCOUNTER 2018-09-05 11:16 | Day surgery (SDC) | payer MEDICARE, OTHER, SELFPAY ==
--- NOTE | 2018-09-05 | PATH_ITS ---
[facility] Accession Number: [id number] . 01 Material submitted: . rectum - RECTAL POLYP . 02 Diagnosis: Rectum, Polyp, Biopsy: Hyperplastic polyp. MRV/09/07/2018 . 02 Electronically signed: . Gail Fregoso MD, Pathologist NPI- [id number] . 01 Gross description: . RECTAL POLYP: Received in formalin is 1 fragment(s) of orozco, soft tissue measuring 0.4 x 0.3 x 0.2 cm submitted entirely in 1 cassette(s) /CKI /CKI . 02 Pathologist provided ICD-10: K62.1 . 02 CPT . 238571 Performed at: 01 [facility] [address], [place], [place] [id number] MD Sampson Hughes MD Phone: [phone] Performed at: 02 [facility] [address] [place], [place] [id number] MD Gail Fregoso MD Phone: [phone]
[2018-09-05 12:02] VITALS: BP 153/78; PULSE 86; RESP 20; TEMP 36.8; O2SAT 97; BMI 28.1
[2018-09-05] MEDS: SODIUM CHLORIDE 0.9% 1,000 ML 150 ML IV (12:10)
--- NOTE | 2018-09-05 13:46 | PM.HP.1 ---
History of Present Illness Chief complaint: [id number] Colonoscopy Patient History Medical History H/O: HTN (hypertension) (Chronic) History of COPD (Chronic) History of asthma (Chronic) Leukocytosis (Chronic) MS (multiple sclerosis) (Chronic) History of breast cancer (Resolved) Surgical History History of (Resolved) Status post cholecystectomy (Resolved) Status post hernia repair (Resolved) Status post hysterectomy (Resolved) Status post right mastectomy (Resolved) Social History (Updated 06/10/18 @ 15:44 by Nanda Vega PA-C) household members: spouse Smoking Status: Former smoker Family & Social History Social History: household members spouse Tobacco & Substance use: Smoking Status Former smoker Meds Home Medications Medication Instructions Recorded Confirmed Type albuterol sulfate HFA 90 1 puff INHALATION Q6H 04/25/18 09/05/18 History mcg/actuation aerosol inhaler losartan 50 mg-hydrochlorothiazide 1 tab PO DAILY #60 tab 04/25/18 09/05/18 Rx 12.5 mg tablet Breo Ellipta 1 puff PO DAILY 09/05/18 09/05/18 History acyclovir 800 mg PO DAILY 09/05/18 09/05/18 History cholecalciferol (vitamin D3) 1,000 unit PO DAILY 09/05/18 09/05/18 History [Vitamin D3] Allergies Allergy/AdvReac Type Severity Reaction Status Date / Time povidone-iodine Allergy Unknown Verified 09/05/18 11:57 [From BETADINE] soap [From BETADINE] Allergy Unknown Verified 09/05/18 11:57 Review of Systems Review of Systems All systems reviewed & are unremarkable except as noted in HPI and below Exam Vital Signs (past 8 hours): - 09/05/18 12:02 Temperature 98.2 F Pulse Rate 86 Respiratory Rate 20 Blood Pressure 153/78 H Pulse Oximetry 97 Oxygen Delivery Method Room Air Narrative Exam Narrative: Awake alert and oriented x3, pupils equal round reactive to light, heart regular rate rhythm, lungs clear, abdomen soft nontender nondistended Assessment & Plan Assessment & Plan narrative: Colon cancer screening, colonoscopy
[2018-09-05 14:09] VITALS: BP 118/58; PULSE 86; RESP 22; TEMP 36.4; O2SAT 94
--- NOTE | 2018-09-05 14:13 | P.OP.ENDO_ITS ---
Operative Date/Time/Diagnoses Date of procedure: 09/05/18 Procedure & Clinicians Study performed: Aborted colonoscopy - cold biopsy Moderate conscious sedation was administered by the endoscopy nurse and supervised by the endoscopist. The following parameters were monitored: Oxygen saturation, heart rate, blood pressure, and response to care. Sedation: 7 mg midazolam, 200 micro g fentanyl Indications: Colon cancer screening. Last colonoscopy attempted >10 years ago, and was incomplete. Negative stool based colon cancer screening since then. Procedure Notes Procedure in detail: Prior to the procedure, history and physical was performed, and patient medications and allergies were reviewed. Preprocedure nursing history and assessment was reviewed. Patient identification and proposed procedure were verified by the physician and nurse in the procedure room. The physical status of the patient was reassessed after the procedure. After informed consent was obtained including risks, benefits, and alternatives, the scope was passed under direct vision. Throughout the procedure, the patient's blood pressure, pulse, and oxygen saturations were monitored continuously. The colonoscope was introduced through the anus and advanced to the sigmoid colon. The intended extent was the cecum. Procedure aborted due to excessive patient discomfort and tortuous colon. The patient tolerated the procedure well. Bowel prep was deemed adequate to detect polyps greater than 5 mm. Perianal and digital rectal examination is unremarkable. Grade 2 internal hem orrhoids noted during retroflexion A 2 mm sessile polyp removed from the rectum Multiple small diverticula noted in the sigmoid colon. There was excessive looping in the sigmoid colon. The sigmoid colon was very tortuous; the scope could not be advanced beyond the sigmoid colon at an area of acute angulation despite repositioning and manual abdominal pressure. Impression: 2 mm rectal polyp removed Internal hemorrhoids Sigmoid colon diverticulosis Tortuous colon with excessive looping in the sigmoid. Procedure aborted. No specimens taken Sedation minutes: 16 Complications: other (EBL minimal. No complications) Plan for aftercare: Follow-up pathology results. If rectal polyp is an adenoma, reschedule colonoscopy with anesthesia. Assuming the rectal polyp is hyperplastic and/or benign, continue stool based colon cancer screening with cologuard or FIT. Alternatively, consider CT colonography Resume home medications High fiber diet Discharge home with escort
[2018-09-05 14:14] VITALS: BP 113/60; PULSE 86; RESP 18; O2SAT 95
[2018-09-05 14:19] VITALS: BP 121/70; PULSE 89; RESP 24; O2SAT 96
[2018-09-05 14:24] VITALS: BP 133/75; PULSE 90; RESP 22; TEMP 37.3; O2SAT 96
[2018-09-05 14:40] VITALS: BP 121/68; PULSE 85; RESP 18; TEMP 36.9; O2SAT 97
--- NOTE | 2018-09-05 14:49 | SUR.PHASEII ---
spoke with patient; explained difficulty w/procedure and follow-up.
== END 2018-09-05 14:54 | disposition home or self-care (01) ==
LOC: ENDO 11:18
PROVIDERS: PCP Internal Medicine; Visit Provider Internal Medicine
PROC: 0DJD8ZZ Inspection of Lower Intestinal Tract, Via Natural or Artificial Opening Endoscopic (ICD-10-PCS; CPT 45378; principal; 2018-09-05 13:00)
DX: Z12.11 Encounter for screening for malignant neoplasm of colon (principal); K57.30 Diverticulosis of large intestine without perforation or abscess without bleeding; K64.1 Second degree hemorrhoids; Z53.09 Procedure and treatment not carried out because of other contraindication; I10 Essential (primary) hypertension; G35 Multiple sclerosis; K62.1 Rectal polyp
CPT/HCPCS: 45380; 88305

== ENCOUNTER → 2019-01-29 10:46 | Outpatient (CLI) | payer MEDICARE, OTHER, SELFPAY ==
--- NOTE | 2019-01-29 | DI.MG.S_ITS ---
UNILATERAL LEFT DIGITAL SCREENING MAMMOGRAM 3D/2D WITH CAD: 01/29/2019 CLINICAL: Routine screening. Personal history of right breast cancer. Family history of breast cancer. Comparison is made to exams dated: 11/30/2017 mammogram, 11/21/2016 mammogram, and 10/21/2011 mammogram - [facility]. There are scattered fibroglandular elements in left breast. Current study was also evaluated with a Computer Aided Detection (CAD) system. There is an irregular asymmetry in the left breast middle depth inferior region seen on the mediolateral oblique view only. There also is an irregular asymmetry in the left breast anterior depth lateral region seen on the craniocaudal view only, near central to the nipple. No other significant masses or calcifications are seen in the breast. IMPRESSION: INCOMPLETE: NEEDS ADDITIONAL IMAGING EVALUATION The irregular asymmetry in the left breast middle depth inferior region seen on the mediolateral oblique view only is indeterminate. Additional views with possible ultrasound are recommended. The irregular asymmetry in the left breast anterior depth lateral region seen on the craniocaudal view only is indeterminate. Additional views with possible ultrasound are recommended. This exam was interpreted at Station ID: [id number]. NOTE: For mammograms, a report in lay terms will be sent to the patient. Approximately 15% of breast malignancies will not be visualized mammographically. In the management of a palpable breast mass, a negative mammogram must not discourage biopsy of a clinically suspicious lesion. Electronically Signed By: Mariusz Franco M.D. ecl/:01/29/2019 14:20:10 letter sent: Additional Imaging Needed ACR BI-RADS Category 0: Incomplete [id number]
== END ==
PROVIDERS: PCP Internal Medicine; Visit Provider Internal Medicine
DX: Z12.31 Encounter for screening mammogram for malignant neoplasm of breast (principal); Z85.3 Personal history of malignant neoplasm of breast; Z80.3 Family history of malignant neoplasm of breast
CPT/HCPCS: 77063; 77067

== ENCOUNTER → 2019-02-14 14:22 | Outpatient (CLI) | payer MEDICARE, OTHER, SELFPAY ==
--- NOTE | 2019-02-14 | DI.MG.S_ITS ---
UNILATERAL LEFT DIGITAL DIAGNOSTIC MAMMOGRAM 3D/2D WITH ADDITIONAL VIEWS: 02/14/2019 CLINICAL: Additional evaluation requested from prior study. Comparison is made to exams dated: 01/29/2019 mammogram, 11/30/2017 mammogram, and 11/21/2016 mammogram - [facility]. There are scattered fibroglandular elements in left breast. There is an irregular equal density asymmetry with an indistinct margin in the left breast middle depth inferior region seen on the mediolateral oblique view only. This is less prominent. There also is a benign irregular equal density asymmetry with an indistinct margin in the left breast anterior depth lateral region seen on the craniocaudal view only. This is not seen in additional views. No other significant masses or calcifications are seen in the breast. IMPRESSION: INCOMPLETE: NEEDS ADDITIONAL IMAGING EVALUATION The irregular equal density asymmetry in the left breast middle depth inferior region seen on the mediolateral oblique view only is indeterminate. An ultrasound is recommended. This exam was interpreted at Station ID: [id number]. NOTE: For mammograms, a report in lay terms will be sent to the patient. Approximately 15% of breast malignancies will not be visualized mammographically. In the management of a palpable breast mass, a negative mammogram must not discourage biopsy of a clinically suspicious lesion. Electronically Signed By: Sampson valentin/kandice:02/14/2019 15:03:19 ACR BI-RADS Category 0: Incomplete [id number]
--- NOTE | 2019-02-14 | DI.US.S_ITS ---
LIMITED ULTRASOUND OF LEFT BREAST: 02/14/2019 CLINICAL: Patient returns today to evaluate a focal asymmetry in the left breast. Comparison is made to exams dated: 02/14/2019 mammogram, 01/29/2019 mammogram, 11/30/2017 mammogram, 11/21/2016 mammogram, 10/21/2011 mammogram - [facility], and 09/10/2010 mammogram - [facility]. Color flow and real-time ultrasound of the left breast lower aspect were performed on the areas of interest. There is a benign 0.3 cm x 0.2 cm x 0.3 cm oval cyst with a smooth internal wall in the left breast at 8 o'clock middle depth. This oval cyst is anechoic with a well-defined boundary and posterior acoustic enhancement. Color flow imaging demonstrates that there is no vascularity present. IMPRESSION: BENIGN There is no sonographic evidence of malignancy. The 0.3 cm x 0.2 cm x 0.3 cm oval cyst in the left breast is benign. There is no abnormality seen in the left breast to correspond with the mammography finding in the lower aspect. A 1 year screening mammogram is recommended. This exam was interpreted at Station ID: [id number]. Electronically Signed By: Sampson Black M.D. ddabilio/:02/14/2019 15:46:28 letter sent: Normal Exam Ultrasound BI-RADS: 2 Benign
== END ==
PROVIDERS: PCP Internal Medicine; Visit Provider Internal Medicine
DX: R92.8 Other abnormal and inconclusive findings on diagnostic imaging of breast (principal); N60.02 Solitary cyst of left breast
CPT/HCPCS: 76642; 77065; G0279

== ENCOUNTER → 2020-01-30 15:55 | Outpatient (CLI) | payer MEDICARE, OTHER, SELFPAY ==
--- NOTE | 2020-01-30 | DI.ECHO.S_ITS ---
[facility]---------+ [facility] +---------+ : : [address] [place] [address] : : : : [id number] : : : : Phone: [phone]---------+ Echocardiogram Report + + :Name: MELISSA BEDOLLA Study Date: 01/30/2020 Height: 68 in : :[facility] Weight: 192 lb : : Gender: Female BSA: 2.0 m2 : :: 1950 Age: 69 yrs BP: 165/84 mmHg: :Reason For Study: HYPERTENSION : :Ordering Physician: PETTY, : :SUE Performed By: Mere Loza : :Referring: SUE DOVE : + + Interpretation Summary The left ventricle is normal in size. The left ventricle is hyperdynamic. The ejection fraction is estimated to be 70-75%. There is no echo evidence for significant left ventricular outflow tract obstruction. The right ventricle is normal in size and function. No significant valvular pathology seen. The IVC is of normal diameter and collapses greater than 50% with a sniff. This suggests a low right atrial pressure of 3 mm Hg. Procedure: A two-dimensional transthoracic echocardiogram with color flow and Doppler was performed. The study quality was technically adequate. There is no prior echocardiogram noted for this patient. The patient was in sinus rhythm with heart rates between 72-92 bpm during the exam. Left Ventricle: The left ventricle is normal in size. Left ventricular wall thickness is at the upper limits of normal. There is no echo evidence for significant left ventricular outflow tract obstruction. There is no thrombus. The ejection fraction is estimated to be 70-75%. The left ventricle is hyperdynamic. There are no focal wall motion abnormalities. Diastolic parameters suggest a relaxation abnormality of the left ventricle, consistent with probable normal filling pressures. Right Ventricle: The right ventricle is normal in size and function. Atria: Both atria are normal in size. There is no Doppler evidence for an interatrial shunt. Mitral Valve: There is mild mitral annular calcification. There is trace mitral regurgitation. Aortic Valve: The aortic valve is trileaflet. The aortic valve is mildly calcified. The aortic valve opens well. There is no aortic valve stenosis. No aortic regurgitation is present. Tricuspid Valve: The tricuspid valve is not well visualized, but is grossly normal. Pulmonary artery pressures cannot be estimated because of the lack of a measurable TR jet velocity but the IVC suggests a CVP of around 3 mmHg. No tricuspid regurgitation. Pulmonic Valve: The pulmonic valve leaflets are thin and pliable; valve motion is normal. There is trace pulmonic regurgitation. Great Vessels: The aortic root is normal size. The dimensions of the ascending aorta are normal. The IVC is of normal diameter and collapses greater than 50% with a sniff. This suggests a low right atrial pressure of 3 mm Hg. Pericardium/ Pleura There is no pericardial effusion. There is no pleural effusion. MMode/2D Measurements & Calculations LVIDd: 4.2 cm LVOT diam: 2.0 cm LVIDs: 2.6 cm Ao root diam: 3.4 cm FS: 38.5 % asc Aorta Diam: 3.2 cm EPSS: 1.2 cm Ao Arch Diam (Prox Trans): 3.3 cm IVSd: 1.0 cm LVPWd: 1.2 cm LV burdick. diameter/BSA (cm/m^2): 2.1 LV sys. diameter/BSA (cm/m^2): 1.3 LA A2 area: 17.6 cm2 RA long axis: 3.9 cm LA A4 area: 14.3 cm2 RA area: 7.0 cm2 LA length (vol): 4.6 cm RA vol: 10.7 ml LA vol: 46.5 ml RA : 5.3 ml/m2 LA vol index: 23.1 ml/m2 IVC diam: 1.4 cm RVD1 (basal): 3.0 cm TAPSE: 2.3 cm Doppler Measurements & Calculations Ao V2 max: 170.6 cm/sec LVOT Max Chad: 125.6 cm/sec Ao V2 mean: 110.5 cm/sec LV V1 max P.3 mmHg Ao max P.6 mmHg LV V1 VTI: 26.9 cm Ao mean P.9 mmHg NILSON(I,D): 2.3 cm2 Ao V2 VTI: 37.4 cm NILSON(V,D): 2.4 cm2 sev ratio: 0.72 NILSON indexed to BSA (cm^2/m^2): 1.2 MV E max chad: 76.6 cm/sec PA V2 max: 59.5 cm/sec MV A max chad: 83.9 cm/sec PA V2 mean: 42.2 cm/sec MV E/A: 0.91 PA mean P.81 mmHg Med Peak E' Chad: 7.9 cm/sec PA pr(Accel): 24.2 mmHg E/E' med: 9.7 Lat Peak E' Chad: 10.0 cm/sec E/E' lat: 7.7 E/e' average: 8.7 MV dec time: 0.24 sec SV(OT): 87.3 ml Reading Physician:07:27 PM
== END ==
PROVIDERS: PCP Internal Medicine; Referring Provider Internal Medicine; Visit Provider Internal Medicine
DX: I10 Essential (primary) hypertension (principal)
CPT/HCPCS: 93306

== ENCOUNTER → 2020-09-10 09:27 | Outpatient (CLI) | payer MEDICARE, OTHER, SELFPAY ==
--- NOTE | 2020-09-10 | DI.MG.S_ITS ---
UNILATERAL LEFT DIGITAL SCREENING MAMMOGRAM 3D/2D WITH CAD POST MASTECTOMY: 09/10/2020 CLINICAL: Routine screening. Personal history of right breast cancer. Family history of breast cancer. Comparison is made to exams dated: 02/14/2019 mammogram, 01/29/2019 mammogram, and 11/30/2017 mammogram - [facility]. The tissue of left breast is heterogeneously dense. This may lower the sensitivity of mammography. Current study was also evaluated with a Computer Aided Detection (CAD) system. There is an oval equal density focal asymmetry with an indistinct and circumscribed margin in the left breast at 5 o'clock middle depth. No other significant masses or calcifications are seen in the breast. IMPRESSION: INCOMPLETE: NEEDS ADDITIONAL IMAGING EVALUATION The oval equal density focal asymmetry in the left breast is indeterminate. Mediolateral and spot compression views as well as additional views with possible ultrasound are recommended. This exam was interpreted at Station ID: [id number]. NOTE: For mammograms, a report in lay terms will be sent to the patient. Approximately 15% of breast malignancies will not be visualized mammographically. In the management of a palpable breast mass, a negative mammogram must not discourage biopsy of a clinically suspicious lesion. Electronically Signed By: Sampson valentin/kandice:09/10/2020 10:20:38 letter sent: Additional Imaging Needed ACR BI-RADS Category 0: Incomplete 3340F
[2020-09-10 10:27] LABS: Add Manual Diff / Slide Review NO; Basophils Absolute Auto 100 /uL (0-100); Basophils Percent Auto 0.6 % (0-2); Eosinophils Absolute Auto 300 /uL (0-450); Eosinophils Percent Auto 2.2 % (2-4); Hematocrit 39.6 % (36-46); Hemoglobin 12.9 g/dL (12.0-16.0); Lymphocytes Absolute Auto 4100 /uL (1100-4500); Lymphocytes Percent Auto 33.7 % (25-40); Mean Corpuscular HGB Conc 32.6 % (30-36); Mean Corpuscular Hemoglobin 26.7 PG (26-34); Mean Corpuscular Volume 81.9 fL (80-100); Monocytes Absolute Auto 1300 /uL (0-900); Monocytes Percent Auto 10.4 % (3-14); Neutrophils Absolute Auto 6400 /uL (1500-7000); Neutrophils Percent Auto 53.1 % (50-75); Platelet Count 245 X10^3/uL (150-400); Red Blood Cell Count 4.83 X10^6/uL (4.0-5.2); Red Cell Distribution Width 13.9 % (11.6-14.8); White Blood Cell Count 12.1 X10^3/uL (4.5-11.0)
[2020-09-10 10:58] LABS: Alanine Aminotransferase 18 IU/L (<35); Albumin 4.1 g/dL (3.5-5.0); Albumin Globulin Ratio 1.2 (1.0-2.8); Alkaline Phosphatase 120 U/L (38-126); Aspartate Aminotransferase 22 IU/L (14-36); BUN Creatinine Ratio 22.5 (6-22); Bilirubin Total 0.4 mg/dL (0.2-1.3); Blood Urea Nitrogen 20 mg/dL (7-17); Calcium 10.3 mg/dL (8.4-10.2); Carbon Dioxide 29 mmol/L (22-32); Chloride 101 mmol/L (98-107); Estimated Glomerular Filt Rate > 60.0 mL/min (>60); Globulin 3.3 g/dL (1.7-4.1); Glucose 96 mg/dL (80-110); HEMOLYSIS < 15 (0-50); Potassium 4.2 mmol/L (3.4-5.1); Sodium 137 mmol/L (137-145); Total Protein 7.4 g/dL (6.3-8.2)
== END ==
PROVIDERS: PCP Internal Medicine; Referring Provider Internal Medicine; Visit Provider Internal Medicine
DX: Z85.3 Personal history of malignant neoplasm of breast (principal); Z12.31 Encounter for screening mammogram for malignant neoplasm of breast; M81.0 Age-related osteoporosis without current pathological fracture; Z78.0 Asymptomatic menopausal state; Z80.3 Family history of malignant neoplasm of breast; G35 Multiple sclerosis; I10 Essential (primary) hypertension; J44.9 Chronic obstructive pulmonary disease, unspecified; Z90.722 Acquired absence of ovaries, bilateral; Z87.891 Personal history of nicotine dependence
CPT/HCPCS: 36415; 77063; 77067; 77080; 80053; 85025

== ENCOUNTER → 2020-09-23 13:58 | Outpatient (CLI) | payer MEDICARE, OTHER, SELFPAY ==
--- NOTE | 2020-09-23 14:00 | DI.US.S_ITS ---
LIMITED ULTRASOUND OF LEFT BREAST: 09/23/2020 CLINICAL: Patient returns today to evaluate a focal asymmetry in the left breast. Comparison is made to exams dated: 09/23/2020 mammogram, 09/10/2020 mammogram, 02/14/2019 ultrasound, 02/14/2019 mammogram, 01/29/2019 mammogram, and 11/30/2017 mammogram - [facility]. Color flow and real-time ultrasound of the left breast 3-4 o'clock region were performed. Bhatia scale images of the real-time examination were reviewed. There is a 0.6 cm x 0.5 cm x 0.3 cm cyst with a septated internal wall in the left breast at 3 o'clock posterior depth 6 cm from the nipple. This cyst is hypoechoic. This correlates with mammography findings. Color flow imaging demonstrates that there is no vascularity present. IMPRESSION: PROBABLY BENIGN The 0.6 cm septated cyst in the left breast is consistent with a complicated cyst and is probably benign. A follow-up left ultrasound in 6 months is recommended to demonstrate stability. Findings and recommendations were conveyed to the patient at time of exam. This exam was interpreted at Station ID: [id number]. Electronically Signed By: Trinity mariscal/:09/23/2020 14:54:35 letter sent: Followup Recommended Ultrasound BI-RADS: 3 Probably benign
--- NOTE | 2020-09-23 14:00 | DI.MG.S_ITS ---
UNILATERAL LEFT DIGITAL DIAGNOSTIC MAMMOGRAM 3D/2D WITH ADDITIONAL VIEWS: 09/23/2020 CLINICAL: Additional evaluation requested from prior study. Comparison is made to exams dated: 09/10/2020 mammogram, 02/14/2019 mammogram, and 01/29/2019 mammogram - [facility]. The tissue of left breast is heterogeneously dense. This may lower the sensitivity of mammography. There is a 7 mm oval equal density focal asymmetry with an indistinct and circumscribed margin in the left breast at 4 o'clock middle depth. This is seen in additional views. This is more prominent. No other significant masses or calcifications are seen in the breast. IMPRESSION: INCOMPLETE: NEEDS ADDITIONAL IMAGING EVALUATION The 7 mm asymmetry in the left breast remains indeterminate. An ultrasound is recommended. This was performed immediately following this exam. This exam was interpreted at Station ID: [id number]. NOTE: For mammograms, a report in lay terms will be sent to the patient. Approximately 15% of breast malignancies will not be visualized mammographically. In the management of a palpable breast mass, a negative mammogram must not discourage biopsy of a clinically suspicious lesion. Electronically Signed By: Trinity mariscal/:09/23/2020 14:37:37 ACR BI-RADS Category 0: Incomplete 3340F
== END ==
PROVIDERS: PCP Internal Medicine; Referring Provider Internal Medicine; Visit Provider Internal Medicine
DX: R92.8 Other abnormal and inconclusive findings on diagnostic imaging of breast (principal); N60.02 Solitary cyst of left breast
CPT/HCPCS: 76642; 77065; G0279

== ENCOUNTER → 2021-03-03 14:28 | Outpatient (CLI) | payer MEDICARE, OTHER, SELFPAY ==
--- NOTE | 2021-03-03 14:30 | DI.US.S_ITS ---
LIMITED ULTRASOUND OF LEFT BREAST: 03/03/2021 CLINICAL: Patient returns for a 6 month follow up of the left breast. Comparison is made to exams dated: 09/23/2020 ultrasound, 09/23/2020 mammogram, 09/10/2020 mammogram, 02/14/2019 ultrasound, 02/14/2019 mammogram, and 01/29/2019 mammogram - [facility]. Color flow and real-time ultrasound of the left breast 3-4 o'clock region were performed on the areas of interest. There is a 0.6 cm x 0.3 cm x 0.4 cm oval cyst in the left breast at 3 o'clock middle depth 6 cm from the nipple. This oval cyst is hypoechoic with a well-defined boundary and internal echoes. Color flow imaging demonstrates that there is no vascularity present. IMPRESSION: PROBABLY BENIGN The 0.6 cm x 0.3 cm x 0.4 cm oval cyst in the left breast is probably benign. Follow-up mammogram and ultrasound in 6 months are recommended. A follow-up mammogram and an ultrasound in 6 months are recommended to demonstrate stability. This exam was interpreted at Station ID: [id number]. Electronically Signed By: Sampson valentin/:03/04/2021 16:35:15 letter sent: Followup Recommended Ultrasound BI-RADS: 3 Probably benign
== END ==
PROVIDERS: PCP Internal Medicine; Referring Provider Internal Medicine; Visit Provider Internal Medicine
DX: R92.8 Other abnormal and inconclusive findings on diagnostic imaging of breast (principal); N60.02 Solitary cyst of left breast; M81.0 Age-related osteoporosis without current pathological fracture
CPT/HCPCS: 76642

== ENCOUNTER → 2021-12-21 11:46 | Outpatient (CLI) | payer MEDICARE, OTHER, SELFPAY ==
--- NOTE | 2021-12-21 | DI.MG.S_ITS ---
UNILATERAL LEFT DIGITAL DIAGNOSTIC MAMMOGRAM 3D/2D: 12/21/2021 CLINICAL: Short term follow up for the left breast. Comparison is made to exams dated: 03/03/2021 ultrasound, 09/23/2020 mammogram, 09/10/2020 mammogram, and 02/14/2019 mammogram - [facility]. The tissue of left breast is heterogeneously dense. This may lower the sensitivity of mammography. There is a 7 mm focal asymmetry in the left breast at 4 o'clock middle depth. This is less prominent. No other significant masses or calcifications are seen in the breast. IMPRESSION: INCOMPLETE: NEEDS ADDITIONAL IMAGING EVALUATION The 7 mm focal asymmetry in the left breast is indeterminate. A targeted ultrasound is recommended and will immediately follow. This exam was interpreted at Station ID: [id number]. NOTE: For mammograms, a report in lay terms will be sent to the patient. Approximately 15% of breast malignancies will not be visualized mammographically. In the management of a palpable breast mass, a negative mammogram must not discourage biopsy of a clinically suspicious lesion. Electronically Signed By: Nura Moffett M.D. slc/:12/21/2021 13:09:00 ACR BI-RADS Category 0: Incomplete 3340F
--- NOTE | 2021-12-21 | DI.US.S_ITS ---
LIMITED ULTRASOUND OF LEFT BREAST: 12/21/2021 CLINICAL: Patient returns for a 6 month follow up of the left breast. Comparison is made to exams dated: 12/21/2021 mammogram, 03/03/2021 ultrasound, 09/23/2020 ultrasound, 09/23/2020 mammogram, 09/10/2020 mammogram, and 02/14/2019 ultrasound - [facility]. Color flow and real-time ultrasound of the left breast were performed. Bhatia scale images of the real-time examination were reviewed. There is a stable 0.7 cm x 0.5 cm x 0.4 cm oval cyst in the left breast at 3 o'clock middle depth 6 cm from the nipple. This oval cyst is hypoechoic with a well-defined boundary and internal echoes. Color flow imaging demonstrates that there is no vascularity present. IMPRESSION: PROBABLY BENIGN Stable 0.7 cm complicated cyst in the left breast is probably benign. A follow-up mammogram and an ultrasound in 12 months is recommended to demonstrate long-term stability. Exam findings were conveyed to the patient. Patient is advised to monitor for significant change. This exam was interpreted at Station ID: [id number]. Electronically Signed By: Nura Moffett M.D. slc/:12/21/2021 13:27:04 letter sent: Followup Recommended Ultrasound BI-RADS: 3 Probably benign
== END ==
PROVIDERS: PCP Internal Medicine; Referring Provider Internal Medicine; Visit Provider Internal Medicine
DX: R92.8 Other abnormal and inconclusive findings on diagnostic imaging of breast (principal); N60.02 Solitary cyst of left breast
CPT/HCPCS: 76642; 77065; G0279

== ENCOUNTER → 2022-01-18 15:40 | Outpatient (CLI) | payer MEDICARE, OTHER, SELFPAY ==
--- NOTE | 2022-01-18 15:41 | DI.RAD.S_ITS ---
PROCEDURE: XR KNEE RT 3V INDICATIONS: BILATERAL KNEE PAIN TECHNIQUE: 3 views of the knee were acquired. COMPARISON: [facility], , KNEE 3V RIGHT, 12/31/2013, 18:54. FINDINGS: Bones: No fractures or dislocations. No suspicious bony lesions. Mild tricompartmental knee joint space narrowing with tricompartmental periarticular osteophyte formation. Soft tissues: Small joint effusion. No suspicious soft tissue calcifications. Vascular calcifications indicate atherosclerosis. IMPRESSION: 1. Mild tricompartmental knee joint degeneration similar prior examination. Dictated by: Dirk Silverman [facility] Interpreted: Nura Moffett MD on 01/18/2022 at 16:20 Transcribed by: REEMA on 01/18/2022 at 16:20 Approved by: Nura Moffett M.D. on 01/18/2022 at 18:30
--- NOTE | 2022-01-18 15:41 | DI.RAD.S_ITS ---
PROCEDURE: XR KNEE LT 3V INDICATIONS: BILATERAL KNEE PAIN TECHNIQUE: 3 views of the knee were acquired. COMPARISON: [facility], , KNEE 3V RIGHT, 12/31/2013, 18:54. [facility], , XR KNEE RT 3V, 01/18/2022, 15:56. FINDINGS: Bones: No fractures or dislocations. No suspicious bony lesions. Mild tricompartmental knee joint space narrowing with tricompartmental periarticular osteophyte formation. Soft tissues: Small joint effusion. No suspicious soft tissue calcifications. Vascular calcifications indicate atherosclerosis. IMPRESSION: Mild tricompartmental knee joint degeneration. Dictated by: Dirk Silverman [facility] Interpreted: Nura Moffett MD on 01/18/2022 at 16:21 Transcribed by: REEMA on 01/18/2022 at 16:21 Approved by: Nura Moffett M.D. on 01/18/2022 at 18:31
== END ==
PROVIDERS: PCP Internal Medicine; Referring Provider Internal Medicine; Visit Provider Internal Medicine
DX: M25.561 Pain in right knee (principal); M25.562 Pain in left knee
CPT/HCPCS: 73562

== ENCOUNTER → 2025-03-11 11:07 | Outpatient (CLI) | payer MEDICARE, OTHER, SELFPAY ==
--- NOTE | 2025-03-11 11:20 | DI.CT.S_ITS ---
PROCEDURE: CT LUNG LOW DOSE SCREENING
== END ==
LOC: CT 11:08
PROVIDERS: PCP Internal Medicine; Referring Provider Internal Medicine; Visit Provider Internal Medicine
DX: Z12.2 Encounter for screening for malignant neoplasm of respiratory organs (principal); F17.210 Nicotine dependence, cigarettes, uncomplicated; R91.8 Other nonspecific abnormal finding of lung field; I25.10 Atherosclerotic heart disease of native coronary artery without angina pectoris; J43.2 Centrilobular emphysema
CPT/HCPCS: 71271

== ENCOUNTER → 2025-03-18 10:03 | Outpatient (CLI) | payer MEDICARE, OTHER, SELFPAY ==
--- NOTE | 2025-03-18 | DI.RAD.S_ITS ---
PROCEDURE: XR KNEE LT 4V INDICATIONS: LT KNEE PAIN TECHNIQUE: 4 views of the left knee were acquired. COMPARISON: [facility], CR, XR KNEE RT 3V, 01/18/2022, 15:56. [facility], CR, XR KNEE LT 3V, 01/18/2022, 16:03. FINDINGS: Bones: Moderate lateral joint space narrowing, lateral osteophytes, osseous demineralization, and lateral patellar tilt on sunrise view. No fractures or dislocations. No suspicious bony lesions. Soft tissues: Small to moderate joint effusion. Vascular calcification. No suspicious soft tissue calcifications. IMPRESSION: Moderate lateral compartment joint space degeneration. Mildly increased compared to prior radiograph 01/18/2022. Dictated by: Osiris Monroe [facility] Interpreted: Nura Moffett MD on 03/18/2025 at 14:39 Transcribed by: LIA on 03/18/2025 at 14:47 Approved by: Nura Moffett M.D. on 03/18/2025 at 17:08
== END ==
PROVIDERS: PCP Internal Medicine; Referring Provider Internal Medicine; Visit Provider Internal Medicine
DX: M17.12 Unilateral primary osteoarthritis, left knee (principal); M25.462 Effusion, left knee; M25.562 Pain in left knee
CPT/HCPCS: 73564